=== PATIENT | male | born 1980 | race Caucasian/White ===

== ENCOUNTER 2024-12-18 06:12 | Day surgery (SDC) | payer OTHER, SELFPAY ==
[2024-12-18] VITALS (12 sets, daily range): BP systolic 106–122; BP diastolic 70–86; BMI 32.4
[2024-12-18] MEDS: TYLENOL 1000 MG PO (06:37)
[2024-12-18] MEDS: NORMOSOL-R/PLASMALYTE-A 1000 IV (06:38)
[2024-12-18] MEDS: TRANSDERM-SCOP 1 PATCH TRANSDERM (07:21)
== END 2024-12-18 11:45 | disposition home or self-care (01) ==
LOC: SDS 06:12
PROVIDERS: ATTENDING PHYSICIAN Surgery
DX: K42.9 Umbilical hernia without obstruction or gangrene (principal)
CPT/HCPCS: 49591